=== PATIENT | male | born 1960 | race Caucasian/White ===

== ENCOUNTER 2017-09-30 10:39 | Emergency (ER) | payer SELFPAY ==
[2017-09-30] MEDS ORDERED: methylPREDNISolone Sod Succ/PF 125 MG/2 ML VIAL ONE (11:11)
[2017-09-30 11:54] LABS: ALT (SGPT) 26 U/L (8-55); AST (SGOT) 22 U/L (5-34); Albumin 3.3 g/dL (3.5-5.0); Alkaline Phosphatase 48 U/L (40-150); Anion Gap 22 mmol/L (10-20); BUN (Urea Nitrogen) 52 mg/dL (8.4-25.7); Bilirubin, Total 0.4 mg/dL (0.2-1.2); Calc. Creatinine Clearance 0 mL/min (70-130); Calcium 8.9 mg/dL (7.8-10.44); Carbon Dioxide 11 mmol/L (22-29); Chloride 105 mmol/L (98-107); Estimated GFR-MDRD 16; Globulin 6.2 g/dL (2.4-3.5); Glucose 75 mg/dL (70-105); Potassium 5.1 mmol/L (3.5-5.1); Protein, Total 9.5 g/dL (6.0-8.3); Sodium 133 mmol/L (136-145)
[2017-09-30 12:01] LABS: Hemoglobin 11.2 g/dL (14.0-18.0); Lymphocytes 27 % (21-51); MDiff Complete? YES; Mean Corpuscular HGB CONC 33.1 g/dL (32.0-36.0); Mean Corpuscular Hemoglobin 29.8 pg (27.0-31.0); Mean Corpuscular Volume 90.2 fl (80.0-94.0); Mean Platelet Volume 9.5 fL (7.4-10.4); Monocytes 12 % (0-10); Neutrophil 61 % (42-75); PLT Morphology Comment Appears Adequate; Platelet Count 149 thou/uL (130-400); RBC Distribution Width 13.1 % (11.5-14.5); Red Blood Cell (RBC) Count 3.75 mill/uL (4.70-6.10); White Blood Cell (WBC) Count 2.6 thou/uL (4.8-10.8)
[2017-09-30] MEDS ORDERED: Albuterol Sulfate 2.5 mg/0.5 ml Neb ONE ×2 (12:12→12:21)
[2017-09-30] MEDS ORDERED: Sodium Chloride 0.9% 100 ML ONE (12:27)
[2017-09-30] MEDS ORDERED: Cefepime 2 GM VIAL ONE (12:27)
--- NOTE | 2017-09-30 12:42 | RAD ---
AP CHEST: Indication: Dyspnea. FINDINGS: There is new airspace opacity now within the right lower lobe. Parenchymal opacity in the right upper lobe has improved. There are some residual interstitial airspace opacity remaining. The left lung re maulik clear. Mild cardiomegaly is stable. Osseous structures are unchanged. IMPRESSION: 1. New right lower lobe airspace opacity suspicious for new pneumonia. 2. Right upper lobe pneumonia seen on 05-25-17 has resolved but there some residual interstitial airs pace opacities remaining which may reflect some recurrent pneumonia within the right upper lobe. Left lung is clear. Osseous structures are unchanged. POS: [facility]
[2017-09-30] MEDS ORDERED: Azithromycin 500 MG VIAL ONE (13:32)
[2017-09-30] MEDS ORDERED: Amoxicillin/Potassium Clav 250 mg/5 ml Oral Suspension ONE (13:32)
[2017-09-30] MEDS ORDERED: Sodium Chloride 0.9% 250 ML 250 ML ONE (13:33)
[2017-09-30 14:11] LABS: Troponin I 0.046 ng/mL (< 0.028)
== END 2017-09-30 13:51 | disposition short-term general hospital (02) ==
LOC: NAV ERS 10:39
DX: A40.3 Sepsis due to Streptococcus pneumoniae (principal); I11.0 Hypertensive heart disease with heart failure; I50.9 Heart failure, unspecified; J44.1 Chronic obstructive pulmonary disease with (acute) exacerbation; I95.9 Hypotension, unspecified; F32.9 Major depressive disorder, single episode, unspecified; F17.210 Nicotine dependence, cigarettes, uncomplicated; Z86.73 Personal history of transient ischemic attack (TIA), and cerebral infarction without residual deficits
CPT/HCPCS: 71045; 80053; 82553; 83605; 83880; 84484; 85025; 87040; 87077; 87149; 87186; 93005; 94640; 94644; 96361; 96374; 96375; 99406; J0456; J0692; J2930; J7050; J7611; J7620

== ENCOUNTER 2018-12-11 14:26 | Emergency (ER) | payer SELFPAY ==
[2018-12-11] MEDS ORDERED: Fluorescein Opthalmic Strip ONE (14:55)
== END 2018-12-11 15:17 | disposition home or self-care (01) ==
LOC: NAV ERS 14:26
DX: H10.213 Acute toxic conjunctivitis, bilateral (principal); T50.905A Adverse effect of unspecified drugs, medicaments and biological substances, initial encounter; I10 Essential (primary) hypertension; F32.9 Major depressive disorder, single episode, unspecified; F17.210 Nicotine dependence, cigarettes, uncomplicated; Z87.01 Personal history of pneumonia (recurrent)
CPT/HCPCS: 99283

== ENCOUNTER 2019-08-16 13:42 | Outpatient (CLI) | payer OTHER ==
--- NOTE | 2019-08-16 13:56 | RAD ---
XR Knee Rt 2 View HISTORY: Disability evaluation. Right knee pain FINDINGS: No fracture or dislocation is identified. No significant osteophytosis is seen.
--- NOTE | 2019-08-16 13:57 | RAD ---
XR Shoulder Lt 2 View HISTORY: Disability evaluation. Left shoulder pain FINDINGS: No fracture or dislocation is identified. There are degenerative changes in the acromioclavicular and glenohumeral joints.
== END 2019-08-16 13:43 | disposition home or self-care (01) ==
LOC: NAV RAD 13:42
PROVIDERS: ATTEND Family Medicine
DX: Z02.71 Encounter for disability determination (principal); M25.512 Pain in left shoulder; M15.9 Polyosteoarthritis, unspecified